=== PATIENT | male | born 1985 | race Caucasian/White ===

== ENCOUNTER 2023-05-21 11:34 | Emergency (ER) | payer MEDICAID ==
[~2023-05-21] VITALS: Ht 170.2 cm; Wt 118.2 kg
[~2023-05-21 11:34] MED LIST: MOTRIN
[2023-05-21 11:39] VITALS: TEMP 98.1
[2023-05-21 12:04] LABS: COVID AG,FIA SOURCE NASAL SWAB
[2023-05-21 12:18] LABS: RAPID GROUP A STREP NEGATIVE (NEGATIVE)
[2023-05-21 12:28] LABS: SARS-COV2 (COVID) ANTIGEN,FIA Negative (Negative)
[2023-05-21 12:45] LABS: INFLUENZA TYPE A NEGATIVE FOR TYPE A (NEGATIVE); INFLUENZA TYPE B NEGATIVE FOR TYPE B (NEGATIVE)
[2023-05-21] MEDS ORDERED: CEPHALEXIN MONOHYDRATE 500 MG CAPSULE PO ONE (14:15)
[2023-05-21] MEDS ORDERED: CEPH-558 PO (14:25)
[2023-05-21 14:43] VITALS: BP 144/90; PULSE 96; RESP 18
== END 2023-05-21 15:59 | disposition home or self-care (01) ==
LOC: EMS 11:37
DX: L03.115 Cellulitis of right lower limb (principal); J02.8 Acute pharyngitis due to other specified organisms; F17.210 Nicotine dependence, cigarettes, uncomplicated; Z20.822 Contact with and (suspected) exposure to COVID-19
CPT/HCPCS: 87430; 87804; 99283